=== PATIENT | male | born 1990 | race Caucasian/White ===

== ENCOUNTER 2017-03-28 09:55 | Emergency (ER) | payer MEDICAID, OTHER ==
[2017-03-28] MEDS ORDERED: cefTRIAXone 1 GM Vial IM ONE (11:12)
[2017-03-28] MEDS ORDERED: Diphtheria,Pertussis(Acell),Tetanus Vaccine 0.5 ML SDV inactive IM ONE (11:14)
[2017-03-28] MEDS ORDERED: cefTRIAXone 1 GM Vial ONE (11:14)
--- NOTE | 2017-03-28 11:24 | EDM.PDOC ---
ED HPI GENERAL MEDICAL PROBLEM - General Chief Complaint: General Stated Complaint: laceration Time Seen by Provider: 03/28/17 10:00 Source of Information: Reports: Patient History Limitations: Reports: No Limitations - History of Present Illness INITIAL COMMENTS - FREE TEXT/NARRATIVE: This is a 26yo M here for a cut of the right 4th and 5th fingers with a kitchen knife. Patient denies any concerns or issues. No other complaints or cuts. 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 ED EXAM, GENERAL - Physical Exam Exam: See Below Exam Limited By: No Limitations General Appearance: Alert, WD/WN, No Apparent Distress Eye Exam: Bilateral Eye: EOMI, PERRL Ears: Normal External Exam Head: Atraumatic, Normocephalic Neck: Normal Inspection Respiratory/Chest: No Respiratory Distress Cardiovascular: Normal Peripheral Pulses Peripheral Pulses: 2+: Radial (L), Radial (R) GI/Abdominal: Normal Bowel Sounds Extremities: Limited Range of Motion. No: Normal Range of Motion Neurological: Sensory/Motor Deficit (unable to flex 4th distal phalange of right hand, unable to flex 5th distal and middle phalange of right hand) Psychiatric: Normal Affect, Normal Mood ED GENERAL MEDICAL PROCEDURES - Laceration/Wound Repair Right Finger Lac/wound length in cm: 2.1 (4th right finger proximal phalange ventral laceration) Appearance: Muscle, Linear, Clean Distal NVT: Other (cut flexor tendon) Anesthetic Type: Local Local Anesthesia - Lidocaine (Xylocaine): 2% Plain Local Anesthetic Volume: 5cc Skin Prep: Chlorhexidine (Hibiciens), Saline, Sterile Drape Exploration/Debridement/Repair: No Foreign Material Found Closed with: Sutures Suture Size: other (5-0) Suture Type: Nylon, Interrupted, Simple Tetanus Status Addressed: Yes Complications: No Right Lateral Finger Lac/wound length in cm: 1.8 (5th proximal phalange ventral cut) Appearance: Muscle, Clean Distal NVT: Other (flexor tendon cut) Anesthetic Type: Local Local Anesthesia - Lidocaine (Xylocaine): 1% Plain Local Anesthetic Volume: 5cc Skin Prep: Chlorhexidine (Hibiciens), Providone-Iodine (Betadine) Exploration/Debridement/Repair: No Foreign Material Found Closed with: Sutures Suture Size: other (5-0) Suture Type: Interrupted, Simple Tetanus Status Addressed: Yes Complications: No - Splinting Right Upper Extremity Splint Site: right forearm Pre-procedure NV status: Abnormal (unable to flex 4th and 5th right digits) Splint Material: Fiberglass Splint Design: Gutter Applied & Form Fitted By: Provider Provider Post-Splint Application NV Check: NV Status Normal (with pre-existing flexor tendon damage) Complications: No Course - Vital Signs Last Recorded V/S: Last Vital Signs Temp 36.6 C 03/28/17 10:04 Pulse 116 H 03/28/17 10:04 Resp 18 03/28/17 10:04 BP 141/84 H 03/28/17 10:04 Pulse Ox 96 03/28/17 10:04 - Orders/Labs/Meds Orders: Active Orders 24 hr Category Date Time Status Vaccines to be Administered [RC] PER UNIT ROUTINE Care 03/28/17 11:14 Active Meds: Medications Discontinued Medications Generic Name Dose Route Start Last Admin Trade Name Andreas PRN Reason Stop Dose Admin Ceftriaxone Sodium Confirm 03/28/17 11:14 03/28/17 11:15 Rocephin Administered 03/28/17 11:15 Not Given Dose 1 gm .ROUTE .STK-MED ONE Ceftriaxone Sodium 1 gm 03/28/17 11:12 Rocephin IM 03/28/17 11:13 ONETIME ONE Diphtheria/Tetanus/Acell Pertussis 0.5 ml 03/28/17 11:14 Boostrix IM 03/28/17 11:15 .ONCE ONE Departure - Departure Time of Disposition: 11:35 Disposition: Home, Self-Care 01 Condition: Undetermined Clinical Impression: Laceration, Laceration of flexor muscle, fascia and tendon of right little finger at wrist and hand level, sequela, Laceration of flexor muscle, fascia and tendon of right ring finger at wrist and hand level, initial encounter Flexor tendon laceration of finger with open wound Qualifiers: Encounter type: initial encounter Qualified Code(s): S56.129A - Laceration of flexor muscle, fascia and tendon of unspecified finger at forearm level, initial encounter; S61.209A - Unspecified open wound of unspecified finger without damage to nail, initial encounter; S61.209A - Unspecified open wound of unspecified finger without damage to nail, initial encounter - Discharge Information Referrals: PCP,None [Primary Care Provider] - Forms: ED Department Discharge Additional Instructions: - Keep the bandage dry and clean. - On Wednesday morning, call this # and look for Dr Ureña. Dr Ureña will instruct you on what to do. - You might need to drive over to [facility] for possible surgery. Care Plan Goals: Patient counseled wound care and management of splint. Discussed close monitoring and f/u for any concerns or issues. Discussed calling Tues am for setup with hand surgeon Dr. Ureña for repair of hand tendons. Patient understands the need for repair and for f/u with any issues or concerns. Discussed use of splint and wound management and patient agrees with plan of care. Rocephin 1g IM given and Tetanus injection given. F/u as directed. - My Orders Last 24 Hours: My Active Orders 03/28/17 11:14 Vaccines to be Administered [RC] PER UNIT ROUTINE - Assessment/Plan Last 24 Hours: My Active Orders 03/28/17 11:14 Vaccines to be Administered [RC] PER UNIT ROUTINE
== END 2017-03-28 11:38 | disposition home or self-care (01) ==
LOC: LB.ED 09:55
DX: S66.126A Laceration of flexor muscle, fascia and tendon of right little finger at wrist and hand level, initial encounter (principal); S66.124A Laceration of flexor muscle, fascia and tendon of right ring finger at wrist and hand level, initial encounter; Z23 Encounter for immunization; W26.0XXA Contact with knife, initial encounter
CPT/HCPCS: 12002; 29125; 90471; 90715; 96372; 99282; J0696